=== PATIENT | male | born 1990 | race Caucasian/White ===

== ENCOUNTER 2016-10-26 07:52 | Emergency (ER) | payer OTHER ==
[~2016-10-26] VITALS: Ht 185.4 cm; Wt 120.0 kg
[2016-10-26 07:56] VITALS: TEMP 36.8; Ht 185.4 cm; Wt 120.0 kg
[2016-10-26] MEDS ORDERED: ONDANSETRON 4MG OD TAB PO STA (08:07)
[2016-10-26] MEDS ORDERED: HYDROCODONE/ACETAMOPHEN 5/325MG TAB PO ONE (08:15)
--- NOTE | 2016-10-26 08:47 | DIAGNOSTIC IMAGING REPORT ---
CT HEAD WITHOUT CONTRAST (CT) CLINICAL HISTORY: Head trauma with loss of consciousness. Head pain. COMPARISON STUDY: No previous studies for comparison. TECHNIQUE: Axial CT of the brain is performed from the vertex to the skull base. IV contrast was not administered for this examination. CT DOSE: 788.63 mGycm FINDINGS: No intra or extra-axial mass lesions are visualized. There is no CT evidence of acute cortical infarction. There is no evidence of midline shift. There is no acute hemorrhage. No calvarial fractures are visualized. There is no evidence of pathologic ventricular dilatation. There is no evidence of acute sinusitis IMPRESSION: Normal noncontrast head CT. Electronically signed by: Chele Tinsley M.D. 10/26/2016 8:45 AM Dictated Date/Time: 10/26/2016 8:44 AM
--- NOTE | 2016-10-26 09:07 | DIAGNOSTIC IMAGING REPORT ---
L-SPINE MIN 4 VIEWS ROUTINE CLINICAL HISTORY: Back pain status post trauma COMPARISON STUDY: No previous studies for comparison. FINDINGS: There are 5 lumbar type vertebral bodies present. No fractures or dislocations are visualized. IMPRESSION: No fractures or dislocations identified Electronically signed by: Chele Tinsley M.D. 10/26/2016 9:05 AM Dictated Date/Time: 10/26/2016 9:04 AM
[2016-10-26] MEDS ORDERED: HYDR-5688 PO (09:52)
[2016-10-26] MEDS ORDERED: ONDA4TAB10 SL (09:52)
[2016-10-26 10:19] VITALS: BP 128/70; PULSE 68; O2SAT 98
--- NOTE | 2016-10-26 12:34 | EMERGENCY ROOM VISIT NOTE ---
History First contact with patient: 08:04 Chief Complaint: FALL Stated Complaint: FALL AND HIT HEAD History of Present Illness The patient is a 26 year old male who presents to the Emergency Room with complaints of fall and head injury that occurred approximately one hour ago. The patient states that he walked out onto his covered back porch, and did not realize that there was ice on the porch. He slipped, fell backwards, and struck his head. The patient believes there was loss of consciousness for a few seconds, but he was able to easily arouse and stand. The patient is experiencing some head pain and nausea. He has difficulty focusing his eyes. No blood or bleeding. He is without chest pain or shortness of breath. No extremity injury. He rates his discomfort a 7/10 and has not taken anything [id number] for his symptoms. Review of Systems More than 10 systems were reviewed and otherwise negative with the exception of history of present illness. Past Medical/Surgical History No chronic medical disease Family History No pertinent family history Social History Smoking Status: Never Smoker Housing Status: lives with family Current/Historical Medications Scheduled Ondasetron Odt (Zofran Odt), 4 MG SL Q6H Scheduled PRN Hydrocodone/Acetaminophen 5MG/325MG (Kelley 5MG/325MG), 1 TABLET PO Q6 PRN for Pain Allergies Coded Allergies: No Known Allergies (Unverified , 10/26/16) Physical Exam Vital Signs Date Time Temp Pulse Resp B/P Pulse Ox O2 Delivery O2 Flow Rate FiO2 10/26/16 10:19 68 16 128/70 98 10/26/16 07:56 36.8 77 18 132/79 97 Room Air Pain Rating (0-10): 4.0 Physical Exam VITALS: Vitals are noted on the nurse's note and reviewed by myself. Vital signs stable. GENERAL: Well-developed, well-nourished, white male, who is in no acute distress and resting comfortably. Patient is cooperative with the examination. HEAD: Normocephalic atraumatic. No miles sign or raccoon eyes. EARS: External ear normal. External auditory canals clear, tympanic membranes pearly stuart without erythema or effusion bilaterally. No hemotympanum EYES: Pupils equal round and reactive to light and accommodation. Conjunctivae without injection, sclerae without icterus. Extraocular movements intact. No hyphema NOSE: Patent, turbinates without inflammation or discharge. MOUTH: Mucous membranes moist. Tonsils are not enlarged. Pharynx without erythema, blood, or exudate. Uvula midline. Airway patent. NECK: Supple without nuchal rigidity. No lymphadenopathy. No thyromegaly. Cervical spine is nontender. HEART: Regular rate and rhythm without murmurs gallops or rubs. LUNGS: Clear to auscultation bilaterally without wheezes, rales or rhonchi. No retractions or accessory muscle use. ABDOMEN: Positive normal bowel sounds x 4. Soft, nontender, without masses or organomegaly. No guarding or rebound tenderness. MUSCULOSKELETAL: No muscle atrophy, erythema, or edema noted. Full range of motion without joint tenderness in all extremities. No extremity tenderness to palpation. Normal gait. Strength 5/5 throughout. There is mild right-sided low back pain on palpation. No significant step-off or ecchymosis. No saddle paresthesias. NEURO: Patient was alert and oriented to person place and time. CN II through XII grossly intact. Medical Decision & Procedures ER Provider Diagnostic Interpretation: CT HEAD WITHOUT CONTRAST (CT) CLINICAL HISTORY: Head trauma with loss of consciousness. Head pain. COMPARISON STUDY: No previous studies for comparison. TECHNIQUE: Axial CT of the brain is performed from the vertex to the skull base. IV contrast was not administered for this examination. CT DOSE: 788.63 mGycm FINDINGS: No intra or extra-axial mass lesions are visualized. There is no CT evidence of acute cortical infarction. There is no evidence of midline shift. There is no acute hemorrhage. No calvarial fractures are visualized. There is no evidence of pathologic ventricular dilatation. There is no evidence of acute sinusitis IMPRESSION: Normal noncontrast head CT. L-SPINE MIN 4 VIEWS ROUTINE CLINICAL HISTORY: Back pain status post trauma COMPARISON STUDY: No previous studies for comparison. FINDINGS: There are 5 lumbar type vertebral bodies present. No fractures or dislocations are visualized. IMPRESSION: No fractures or dislocations identified Medications Administered Medications (Trade) Dose Ordered Sig/Aundrea Route Start Time Stop Time Status Last Admin Dose Admin Acetaminophen/ Hydrocodone Bitart (Kelley 5/325 Tab) 1 tab NOW ONCE PO 10/26/16 08:15 10/26/16 08:16 DC 10/26/16 08:41 1 TAB Ondansetron HCl (Zofran Odt) 4 mg NOW STAT PO 10/26/16 08:07 10/26/16 08:09 DC 10/26/16 08:40 4 MG ED Course Physical exam and history were performed. Nursing notes and EMR were reviewed. Patient appears to have fallen this morning on ice. He does have head pain, but there is no obvious outward signs of trauma on exam. He does have some mild low back tenderness on palpation. The patient was given Vicodin and Zofran by mouth here in the department. He was sent for CT scan and x-ray. The patient was reevaluated multiple times throughout the course of his stay. His CT scan does not show evidence of acute cranial bleed or fracture. X-rays without evidence of fracture. The patient did have improvement of his symptoms after analgesics here. He overall appears stable for discharge, and I do suspect that he has a concussion. The patient will be given a short course of Vicodin for home use. He is to follow with his primary care physician in the next few days for recheck. He was otherwise invited back to the ER with any new , worsening, or concerning symptoms. The patient voiced understanding of this plan and was pleased of care. The chart was completed utilizing [employer] Speech Voice Recognition Software. Grammatical errors, random word insertions, pronoun errors, and incomplete sentences are an occasional consequence of this system due to software limitations, ambient noise, and hardware issues. Any formal questions or concerns about the content, text, or information contained within the body of this dictation should be directly addressed to the provider for clarification. . Medical Decision Differential diagnosis: Etiologies such as concussion, contusion, fracture, subdural hematoma, epidural hematoma, intraparenchymal hemorrhage, as well as other traumatic pathologies were entertained. [place] Drug Monitoring Program Search Results: patient reviewed within database, no issues identified Impression Primary Impression: Fall Additional Impression: Closed head injury Departure Information Dispostion Home / Self-Care Condition GOOD Prescriptions Ondasetron Odt (ZOFRAN ODT) 4 Mg Tab 4 MG SL Q6H for Nausea, #12 TAB Prov: Vijay Dukes PA-C 10/26/16 Hydrocodone/Acetaminophen 5MG/325MG (Kelley 5MG/325MG) Tab 1 TABLET PO Q6 Y for Pain, #12 TAB For Initial Treatment Prov: Vijay Dukes PA-C 10/26/16 Forms HOME CARE DOCUMENTATION FORM, IMPORTANT VISIT INFORMATION Patient Instructions A Signature Page, [facility] Additional Instructions You were seen and evaluated today on an emergency basis only. This is not a substitute for, or an effort to provide, complete comprehensive medical care. It is not possible to recognize and treat all injuries or illnesses in a single emergency department visit. For this reason it is recommended that you followup with your primary care physician next week for ongoing care and evaluation. For baseline pain relief you may alternate ibuprofen and acetaminophen every 4 hours for pain control. Take 600 mg ibuprofen (Advil) and then 4 hours later take 1000 mg acetaminophen (Tylenol). Do not take more than 3000 mg acetaminophen in a single day. Kelley (hydrocodone/acetaminophen) 5/325 mg every 6 hours as needed for worsening breakthrough pain. Do not drink or drive on Kelley. This medication will likely make you tired. Do not take Kelley and Tylenol at the same time as both contain acetaminophen. Kelley may cause constipation. You may wish to take an [id number] stool softener like Colace if this occurs. Zofran 1 tablet every 6 hrs as needed for nausea. You are welcome to return to the emergency department anytime with new, worsening, or concerning symptoms. Problem Qualifiers
== END 2016-10-26 10:05 | disposition home or self-care (01) ==
LOC: C.EDB 07:53 → C.EDA 10:05
DX: S09.90XA Unspecified injury of head, initial encounter (principal); W00.0XXA Fall on same level due to ice and snow, initial encounter; Y92.008 Other place in unspecified non-institutional (private) residence as the place of occurrence of the external cause

== ENCOUNTER → 2017-05-24 | Outpatient (CLI) | payer OTHER ==
--- NOTE | 2017-05-24 14:02 | DIAGNOSTIC IMAGING REPORT ---
RIGHT KNEE 1 OR 2 VIEWS ROUTINE CLINICAL HISTORY: Post dislocation of right knee. COMPARISON: Right knee radiographs January 03, 2016 and MRI of the right knee January 19, 2016. FINDINGS: A tiny bone island within the proximal right tibia is unchanged. This is benign. No fracture or joint effusion is identified. Patellofemoral alignment is suboptimally assessed given the lack of a sunrise view. Joint spaces are preserved. IMPRESSION: 1. No acute fracture or joint effusion of the right knee. 2. Patellofemoral alignment suboptimally assessed given the lack of sunrise view. However, at most mild lateral patellar tilt. Electronically signed by: Kelvin Spence M.D. 05/24/2017 2:01 PM Dictated Date/Time: 05/24/2017 1:53 PM
== END | disposition home or self-care (01) ==
LOC: C.RAD1850 13:22
PROVIDERS: ATTEND Preventive Medicine Occupational Medicine
DX: S83.006A Unspecified dislocation of unspecified patella, initial encounter (principal); X58.XXXA Exposure to other specified factors, initial encounter